=== PATIENT | female | born 1950 | race Asian ===

== ENCOUNTER 2024-02-24 19:25 | Emergency (ER) | payer OTHER, SELFPAY ==
[2024-02-24 19:26] VITALS: BP 180/95
[2024-02-24 19:45] LABS: % Basophils 0.4 % (0-2); % Eosinophils 2.8 % (0-6); % Immature Granulocytes 0.3 % (0-0.5); % Lymphocytes 42.6 % (20.5-51.1); % Monocytes 5.4 % (1.7-9.3); % Neutrophils 48.5 % (42.2-75.2); Absolute Eosinophils 0.2 10^3/uL (0-0.7); Absolute Lymphocytes 2.9 10^3/uL (1.2-3.4); Absolute Monocytes 0.4 10^3/uL (0.1-0.6); Absolute Neutrophils 3.3 10^3/uL (1.4-6.5); Hematocrit 35.9 % (37.0-47.0); Hemoglobin 12.1 g/dL (12.0-16.0); Mean Corp Hgb Conc. 33.7 g/dL (33.0-37.0); Mean Corpuscular Hgb 28.9 pg (27.0-31.0); Mean Corpuscular Volume 85.7 fL (81.0-99.0); Mean Platelet Volume 10.1 fL (7.4-10.4); Nucleated Red Blood Cells % 0 %; Platelet Count 174 10^3/uL (130-400); Red Blood Cell Count 4.19 10^6/uL (4.20-5.40); Red Cell Dist. Width 12.5 % (11.5-14.5); White Blood Cell Count 6.8 10^3/uL (4.8-10.8)
[2024-02-24 20:09] LABS: Troponin I < 0.012 ng/ml
[2024-02-24 20:46] LABS: ALT (SGPT) 12 U/L (0-35); AST (SGOT) 26 U/L (14-36); Albumin 4.8 g/dl (3.5-5.0); Alkaline Phosphatase 53 U/L (38-126); Blood Urea Nitrogen 31 mg/dl (7-17); Calcium 8.9 mg/dl (8.4-10.2); Carbon Dioxide 20 mmol/L (22-30); Chloride 97 mmol/L (98-107); Glucose 249 mg/dl (70-99); Potassium 4.9 mmol/L (3.5-5.1); Sodium 133 mmol/L (135-145); Total Bilirubin 0.3 mg/dl (0.2-1.3)
[2024-02-24 21:06] LABS: TSH Reflex To Free T4 3.47 uIU/ml (0.47-4.68)
[2024-02-24 21:08] VITALS: BP 143/67
--- NOTE | 2024-02-24 21:32 | ED.GENMED ---
History of Present Illness
<Narayan Baldwin MD, Resident - Last Filed: 02/24/24 23:04>
General
Chief Complaint: Blood Pressure Problem
Source: patient and family
Exam Limitations: none
Time Seen by Provider: 02/24/24 20:58
Nursing documentation reviewed up to this point in time: agreed with
Travel History
Have you traveled to any high risk areas for coronavirus over the past 14 days?: No
Have you had any contact with someone who has COVID-19?: No
Do you have any symptoms of coronavirus? Fever > 100 degrees, chills, cough, shortness of breath, sore throat, loss of taste or smell, muscle aches, or headache?: No
History of Present Illness
History of Present Illness:
This is a 73-year-old female with PMH of essential hypertension, HLD, type II DM, who presented to the emergency department with the son with complaint of high blood pressure, dizziness, urinary frequency at home. Patient reports a blood pressure
of 170/90, 170/100 on recheck about 2 hours prior to presentation. Per patient, her blood pressure is usually around 130-140 systolic. She denies history of anxiety. She denies chest pain, shortness of breath, vision changes, or headaches.
While in the ED, her blood pressure was 180/95, pulse 110, afebrile and saturating at 100% at room air. Labs were remarkable for sodium 133, creatinine 1.1, BUN 31, glucose 249, troponin was also normal. On review of her outpatient labs, her
creatinine and BUN seems to be at baseline. Her blood pressure improved to 143/67 without any intervention.
Past History
<Narayan Baldwin MD, Resident - Last Filed: 02/24/24 23:04>
Past History
ED Past Medical History: HTN, Hypercholesterolemia and NIDDM
ED Past Surgical History: Gynecological (Fibroid removed)
Social History
Tobacco: Non-smoker
Alcohol: None
Drug: None
Personal:
Living: with family
Review of Systems
<Narayan Baldwin MD, Resident - Last Filed: 02/24/24 23:04>
Review of Systems
All Other Systems: ROS reviewed and negative except as documented in HPI and ROS
Phy Exam
<Narayan Baldwin MD, Resident - Last Filed: 02/24/24 23:04>
General Physical Exam
General Presentation: well appearing and no apparent distress
General age: appears stated age
General Skin: warm and dry
General Habitus: normal
General Mental: alert
General Hydration: dry mucous membranes
Course
<Narayan Baldwin MD, Resident - Last Filed: 02/24/24 23:04>
Orders/Labs/Results
Orders:
Orders
02/24/24 19:30
ECG [Electrocardiogram (*1)] Urgent
Reason for Study: Palpitations
EKG- Treatment ONCE
02/24/24 19:38
Complete Blood Count/With Diff Urgent
Comprehensive Metabolic Panel Urgent
TSH Reflex To Free T4 Urgent
Troponin I Urgent
Abnormal Lab Results
02/24/24
19:38
RBC 4.19 L 10^6/uL
(4.20-5.40)
Hct 35.9 L %
(37.0-47.0)
Sodium 133 L mmol/L
(135-145)
Chloride 97 L mmol/L
(98-107)
Carbon Dioxide 20 L mmol/L
(22-30)
BUN 31 H mg/dl
(7-17)
Creatinine 1.1 H mg/dL
(0.6-1.0)
Glucose 249 H mg/dl
(70-99)
01/17/25 19:38
02/24/24 19:38
Vital Signs
Initial and Last Documented VS:
Initial Vital Signs
Temp Pulse Resp BP Pulse Ox
97.6 F 110 16 180/95 100
02/24/24 19:26 02/24/24 19:26 02/24/24 19:26 02/24/24 19:26 02/24/24 19:26
Last Documented Vital Signs
Temp Pulse Resp BP Pulse Ox
97.6 F 103 20 143/67 97
02/24/24 19:26 02/24/24 21:08 02/24/24 21:08 02/24/24 21:08 02/24/24 21:08
Rejilt;Elliott Waterman DO - Last Filed: 02/24/24 22:31>
Orders/Labs/Results
Orders:
Orders
02/24/24 19:30
ECG [Electrocardiogram (*1)] Urgent
Reason for Study: Palpitations
EKG- Treatment ONCE
02/24/24 19:38
Complete Blood Count/With Diff Urgent
Comprehensive Metabolic Panel Urgent
TSH Reflex To Free T4 Urgent
Troponin I Urgent
Abnormal Lab Results
02/24/24
19:38
RBC 4.19 L 10^6/uL
(4.20-5.40)
Hct 35.9 L %
(37.0-47.0)
Sodium 133 L mmol/L
(135-145)
Chloride 97 L mmol/L
(98-107)
Carbon Dioxide 20 L mmol/L
(22-30)
BUN 31 H mg/dl
(7-17)
Creatinine 1.1 H mg/dL
(0.6-1.0)
Glucose 249 H mg/dl
(70-99)
02/24/24 19:38
02/24/24 19:38
Vital Signs
Initial and Last Documented VS:
Initial Vital Signs
Temp Pulse Resp BP Pulse Ox
97.6 F 110 16 180/95 100
02/24/24 19:26 02/24/24 19:26 02/24/24 19:26 02/24/24 19:26 02/24/24 19:26
Last Documented Vital Signs
Temp Pulse Resp BP Pulse Ox
97.6 F 103 20 143/67 97
02/24/24 19:26 02/24/24 21:08 02/24/24 21:08 02/24/24 21:08 02/24/24 21:08
<Narayan Baldwin MD, Resident - Last Filed: 02/24/24 23:04>
MDM/Problems Addressed
Differential Diagnosis Includes:
Hypovolemic hyponatremia secondary to acute dehydration, uncontrolled hypertension, uncontrolled diabetes mellitus, CKD stage IIIa,
MDM/Problems Addressed:
73-year-old female with PMH of type 2 diabetes mellitus, hyperlipidemia, essential hypertension who presents presented to the emergency department with acute increase in blood pressure at home. On presentation, patient's blood pressure was 180/95
but improved to 143/67 without intervention.
Recheck routine labs and treat accordingly.
Chronic conditions affecting care: DM and HTN
Acute Exacerbation and/or Progression of Chronic Illness: DM
<Narayan Baldwin MD, Resident - Last Filed: 02/24/24 23:04>
*Critical Care Note
Total Time (30-74mins, 75-104mins- exclusive of procedures): Not Applicable
<Narayan Baldwin MD, Resident - Last Filed: 02/24/24 23:04>
Update Note
Update Note:
Labs remarkable for sodium 133, chloride 97, bicarbonate 20, creatinine 1.1 and BUN 31 with glucose 249. This is consistent with hypovolemic hyponatremia most likely due to uncontrolled diabetes mellitus with polyuria and acute dehydration.
Review of patient's [facility] records shows her creatinine and BUN are at baseline. Will discharge patient to follow-up with her primary care physician.
ED Attending Note
<Narayan Baldwin MD, Resident - Last Filed: 02/24/24 23:04>
-
Portions of this chart may have been created with voice recognition software.� Occasional wrong word or��sound alike� substitutions may have occurred due to the inherent limitations of voice recognition software.
<Elliott Waterman, - Last Filed: 02/24/24 22:31>
ED Attending Note
Patient seen and examined by attending physician: Yes
I performed a history and physical exam of patient and discussed management with resident, I reviewed resident's note and agree with documented findings and plan of care.: Yes
ED Attending Note:
I agree with the residents note
Patient presents to the emergency room concerned about her elevated blood pressure. Patient was not feeling great this evening, complaining of dizziness and some nausea. Blood pressure was noted to be elevated on a couple measurements prompting
their visit to the ER. Here the patient denies chest pain, abdominal pain, headache, focal neurologic deficits. She is no longer nauseous. Patient did take an extra dose of losartan prior to coming to the hospital.
General: Awake, Alert, Oriented X3. No acute distress.
Vitals: unremarkable
Head: Atraumatic
Eyes: Pupils equal, EOMI
Throat: Airway intact, no exudates
Neck: Trachea midline
Lungs: Clear and equal b/l
Heart: Regular rate, no murmurs
Abd: Soft, Nontender, No pulsatile mass
Neuro: Nonfocal
Skin: Warm, dry, no rash
Extremities: pulses equal b/l, no edema
Patient has normal CBC. Her chemistries show mildly low sodium, mildly elevated BUN and creatinine. I was able to access the patient's chart on [facility]. The labs today are fairly consistent with her most recent labs. No indication for any acute
intervention. Patient can be discharged to follow-up with her primary care provider
Discharge Plan
Departure
Patient Disposition: Home (Routine Discharge)
Date of Disposition: 02/24/24
Time of Disposition: 22:24
Patient with high blood pressure during this ER visit?: Yes
Condition: Good
Discharge Problem:
Uncontrolled hypertension
Instructions: High Blood Pressure (DC)
Prescriptions:
No Action
losartan 50 MG tablet
100 mg PO DAILY
glyburide 5 MG tablet
5 mg PO BID
aspirin 81 MG tablet,delayed release (DR/EC)
81 mg PO DAILY
simvastatin 20 MG tablet
20 mg PO HS
metformin 1,000 MG tablet
1,000 mg PO BID
Activity Restrictions/Additional Instructions:
Please follow-up with your primary care provider. I would not recommend adjusting blood pressure medicine at this time. You do not need to return to the emergency room with a blood pressure comes up unless you have associated headache, chest pain
or shortness of breath.
Interventions
Interventions:
*General Assessment Last Done: 02/24/24 21:07
ED- Fall Risk Assessment Last Done: 02/24/24 21:07
*Nursing Disposition Last Done: 02/24/24 22:37
ED- Cardiac Assessment Last Done: 02/24/24 21:07
ED- Neurological Assessment Last Done: 02/24/24 21:07
ED- Pulmonary Assessment Last Done: 02/24/24 21:07
Discharge Date and Time
Discharge Date/Time: 02/24/24 22:37
Print Language: ANGUILLAN
== END 2024-02-24 22:37 | disposition home or self-care (01) ==
LOC: EMR 19:25
PROVIDERS: Emergency Medicine; EMERGENCY PHYSICIAN Emergency Medicine; FAMILY PHYSICIAN Family Medicine
DX: I10 Essential (primary) hypertension (principal); E78.00 Pure hypercholesterolemia, unspecified; E11.9 Type 2 diabetes mellitus without complications
CPT/HCPCS: 99284; 80053; 84443; 84484; 85025; 93005

== ENCOUNTER → 2024-03-01 12:56 | Outpatient (REF) | payer OTHER, SELFPAY | LOC: WDC 12:56 | PROVIDERS: ATTENDING PHYSICIAN Family Medicine | DX: Z12.31 Encounter for screening mammogram for malignant neoplasm of breast (principal); M81.0 Age-related osteoporosis without current pathological fracture; Z78.0 Asymptomatic menopausal state; M85.89 Other specified disorders of bone density and structure, multiple sites | CPT/HCPCS: 77063; 77067; 77080 ==

== ENCOUNTER → 2024-03-19 10:27 | Outpatient (REF) | payer OTHER, SELFPAY | LOC: WDC 10:27 | PROVIDERS: ATTENDING PHYSICIAN Family Medicine | DX: R92.2 Inconclusive mammogram (principal) | CPT/HCPCS: 76641 ==